=== PATIENT | male | born 1990 | race Caucasian/White ===

== ENCOUNTER 2024-12-12 06:46 | Inpatient (IN) ==
[2024-12-12] MEDS ORDERED: IOPAMIDOL 100 ML BOTTLE IV ONE (06:47)
[2024-12-12] MEDS: 0.9 % SODIUM CHLORIDE 1,000 ML IV ONE ×2 (07:18→08:39)
[2024-12-12] MEDS: ONDANSETRON 4 MG/2 ML VIAL IV ONE (07:19)
[2024-12-12] MEDS: KETOROLAC 15 MG/ML VIAL IV ONE (07:19)
[2024-12-12 07:34] LABS: Basophils # (Auto) 0.02 K/mcL (0.00-0.30); Basophils % (Auto) 0.1 % (0.0-2.0); Eosinophils # (Auto) 0.04 K/mcL (0.00-0.70); Eosinophils % (Auto) 0.3 % (0.0-7.0); Hematocrit 39.8 % (40.1-51.0); Hemoglobin 13.2 g/dL (13.7-17.5); Lymphocytes # (Auto) 1.60 K/mcL (1.50-4.80); Lymphocytes % (Auto) 11.9 % (15.5-49.0); Mean Corpuscular HGB Conc 33.2 g/dL (31.0-36.0); Monocytes # (Auto) 0.73 K/mcL (0.10-0.90); Monocytes % (Auto) 5.4 % (1.0-12.0); Neutrophils % (Auto) 82.2 % (38.0-78.0); Platelet Count 366 K/mcL (140-440); RBC 4.42 M/mcL (4.63-6.08); WBC 13.5 K/mcL (4.5-11.0)
[2024-12-12 07:47] LABS: ALT/SGPT 23 U/L (<40); AST/SGOT 17 U/L (<40); Albumin 4.2 gm/dL (3.2-5.2); Albumin/Globulin Ratio 1.8 (1.0-2.3); Alkaline Phosphatase 42 U/L (39-117); Anion Gap 15.0 (8.0-16.0); Bilirubin,Total 0.3 mg/dL (0.1-1.0); Blood Urea Nitrogen 14 mg/dL (6-20); Calcium 9.5 mg/dL (8.6-10.4); Carbon Dioxide 23 mmol/L (22-30); Chloride 99 mmol/L (96-108); Globulin 2.4 gm/dL (2.2-3.7); Glucose 139 mg/dL (70-105); Potassium 3.4 mmol/L (3.3-5.1); Sodium 137 mmol/L (133-145)
[2024-12-12] MEDS: fentaNYL 100 MCG/2 ML VIAL IV ONE (08:41)
[2024-12-12] MEDS: DICYCLOMINE 20 MG/2 ML VIAL IM ONE (09:36)
[2024-12-12] MEDS: PIPERACILLIN SODIUM/TAZOBACTAM 3.375 GM in DEXTROSE 5% IN WATER 50 ML IV SCH (10:03)
[2024-12-12] MEDS: 0.9 % SODIUM CHLORIDE 1,000 ML IV SCH (10:04)
[2024-12-12] MEDS: 0.9 % SODIUM CHLORIDE 10 ML SYRINGE IV SCH (12:32)
[2024-12-12] MEDS: PIPERACILLIN SODIUM/TAZOBACTAM 4.5 GM in DEXTROSE 5% IN WATER 100 ML IV SCH (15:17)
[2024-12-12 18:48] LABS: ALT/SGPT 18 U/L (<40); AST/SGOT 16 U/L (<40); Albumin 3.9 gm/dL (3.2-5.2); Albumin/Globulin Ratio 1.8 (1.0-2.3); Alkaline Phosphatase 40 U/L (39-117); Anion Gap 12.0 (8.0-16.0); Bilirubin,Direct 0.2 mg/dL (<0.3); Bilirubin,Total 0.5 mg/dL (0.1-1.0); Blood Urea Nitrogen 7 mg/dL (6-20); Calcium 8.8 mg/dL (8.6-10.4); Carbon Dioxide 23 mmol/L (22-30); Chloride 103 mmol/L (96-108); Globulin 2.2 gm/dL (2.2-3.7); Glucose 100 mg/dL (70-105); Phosphorous 3.5 mg/dL (2.5-4.5); Potassium 3.5 mmol/L (3.3-5.1); Sodium 138 mmol/L (133-145); Triglycerides 75 mg/dL (<150); Uric Acid 4.5 mg/dL (2.5-8.0)
[2024-12-13 06:26] LABS: Basophils # (Auto) 0.03 K/mcL (0.00-0.30); Basophils % (Auto) 0.3 % (0.0-2.0); Eosinophils # (Auto) 0.10 K/mcL (0.00-0.70); Eosinophils % (Auto) 0.9 % (0.0-7.0); Hematocrit 37.8 % (40.1-51.0); Hemoglobin 12.4 g/dL (13.7-17.5); Lymphocytes # (Auto) 1.92 K/mcL (1.50-4.80); Lymphocytes % (Auto) 17.7 % (15.5-49.0); Mean Corpuscular HGB Conc 32.8 g/dL (31.0-36.0); Monocytes # (Auto) 1.08 K/mcL (0.10-0.90); Monocytes % (Auto) 10.0 % (1.0-12.0); Neutrophils % (Auto) 70.9 % (38.0-78.0); Platelet Count 305 K/mcL (140-440); RBC 4.14 M/mcL (4.63-6.08); WBC 10.9 K/mcL (4.5-11.0)
[2024-12-13 06:44] LABS: ALT/SGPT 17 U/L (<40); AST/SGOT 13 U/L (<40); Albumin 3.6 gm/dL (3.2-5.2); Albumin/Globulin Ratio 1.6 (1.0-2.3); Alkaline Phosphatase 40 U/L (39-117); Anion Gap 9.0 (8.0-16.0); Bilirubin,Direct 0.2 mg/dL (<0.3); Bilirubin,Total 0.5 mg/dL (0.1-1.0); Blood Urea Nitrogen 6 mg/dL (6-20); Calcium 8.5 mg/dL (8.6-10.4); Carbon Dioxide 24 mmol/L (22-30); Chloride 105 mmol/L (96-108); Globulin 2.2 gm/dL (2.2-3.7); Glucose 86 mg/dL (70-105); Phosphorous 2.9 mg/dL (2.5-4.5); Potassium 3.6 mmol/L (3.3-5.1); Sodium 138 mmol/L (133-145); Triglycerides 99 mg/dL (<150); Uric Acid 3.7 mg/dL (2.5-8.0)
[2024-12-14 06:35] LABS: Basophils # (Auto) 0.04 K/mcL (0.00-0.30); Basophils % (Auto) 0.5 % (0.0-2.0); Eosinophils # (Auto) 0.31 K/mcL (0.00-0.70); Eosinophils % (Auto) 3.7 % (0.0-7.0); Hematocrit 36.5 % (40.1-51.0); Hemoglobin 11.8 g/dL (13.7-17.5); Lymphocytes # (Auto) 1.92 K/mcL (1.50-4.80); Lymphocytes % (Auto) 23.0 % (15.5-49.0); Mean Corpuscular HGB Conc 32.3 g/dL (31.0-36.0); Monocytes # (Auto) 0.90 K/mcL (0.10-0.90); Monocytes % (Auto) 10.8 % (1.0-12.0); Neutrophils % (Auto) 61.9 % (38.0-78.0); Platelet Count 282 K/mcL (140-440); RBC 3.95 M/mcL (4.63-6.08); WBC 8.3 K/mcL (4.5-11.0)
[2024-12-14 06:58] LABS: ALT/SGPT 18 U/L (<40); AST/SGOT 14 U/L (<40); Albumin 3.6 gm/dL (3.2-5.2); Albumin/Globulin Ratio 1.6 (1.0-2.3); Alkaline Phosphatase 40 U/L (39-117); Anion Gap 11.0 (8.0-16.0); Bilirubin,Direct 0.2 mg/dL (<0.3); Bilirubin,Total 0.5 mg/dL (0.1-1.0); Blood Urea Nitrogen 6 mg/dL (6-20); Calcium 8.7 mg/dL (8.6-10.4); Carbon Dioxide 23 mmol/L (22-30); Chloride 105 mmol/L (96-108); Globulin 2.2 gm/dL (2.2-3.7); Glucose 84 mg/dL (70-105); Phosphorous 2.8 mg/dL (2.5-4.5); Potassium 3.4 mmol/L (3.3-5.1); Sodium 139 mmol/L (133-145); Triglycerides 107 mg/dL (<150); Uric Acid 3.6 mg/dL (2.5-8.0)
[2024-12-14] MEDS ORDERED: ONDANSETRON 4 MG/2 ML VIAL ONE (09:59)
[2024-12-14] MEDS ORDERED: LIDOCAINE 2% PF 5 ML VIAL ONE (09:59)
[2024-12-14] MEDS ORDERED: fentaNYL 100 MCG/2 ML VIAL ONE ×2 (09:59→11:21)
[2024-12-14] MEDS ORDERED: MAGNESIUM SULFATE 2 GM/50 ML BAG IV ONE (09:59)
[2024-12-14] MEDS ORDERED: ROCURONIUM 10 MG/ML ML IV ONE (09:59)
[2024-12-14] MEDS ORDERED: PROPOFOL 200 MG/20 ML VIAL IV ONE (09:59)
[2024-12-14] MEDS ORDERED: DEXAMETHASONE 10 MG/ML VIAL ONE (09:59)
[2024-12-14] MEDS ORDERED: IPRATROPIUM/ALBUTEROL 3 ML AMPUL.NEB NEB PRN (11:09)
[2024-12-14] MEDS ORDERED: LACTATED RINGERS 250 ML IV PRN (11:09)
[2024-12-14] MEDS ORDERED: diphenhydrAMINE 50 MG/ML VIAL IV PRN (11:09)
[2024-12-14] MEDS ORDERED: ONDANSETRON 4 MG/2 ML VIAL IV PRN (11:09)
[2024-12-14] MEDS ORDERED: MEPERIDINE 25 MG/ML VIAL IV PRN (11:09)
[2024-12-14] MEDS ORDERED: NALOXONE HCL 0.4 MG/ML VIAL IV PRN (11:09)
[2024-12-14] MEDS ORDERED: SUGAMMADEX SODIUM 200 MG/2 ML VIAL IV ONE (11:20)
[2024-12-14] MEDS: LACTATED RINGERS 1,000 ML IV SCH (11:31)
[2024-12-14] MEDS: ACETAMINOPHEN 1,000 MG/100 ML BAG IV ONE (11:39)
[2024-12-14] MEDS: KETOROLAC 30 MG/ML VIAL IV PRN (11:51)
[2024-12-14] MEDS: METHOCARBAMOL 1,000 MG/10 ML VIAL IV PRN (11:56)
[2024-12-14] MEDS: ONDANSETRON 4 MG/2 ML VIAL IV PRN (11:56)
[2024-12-14] MEDS: fentaNYL 100 MCG/2 ML VIAL IV PRN (12:07)
[2024-12-15 06:34] LABS: Basophils # (Auto) 0.01 K/mcL (0.00-0.30); Basophils % (Auto) 0.1 % (0.0-2.0); Eosinophils # (Auto) 0.01 K/mcL (0.00-0.70); Eosinophils % (Auto) 0.1 % (0.0-7.0); Hematocrit 34.3 % (40.1-51.0); Hemoglobin 11.2 g/dL (13.7-17.5); Lymphocytes # (Auto) 1.70 K/mcL (1.50-4.80); Lymphocytes % (Auto) 16.7 % (15.5-49.0); Mean Corpuscular HGB Conc 32.7 g/dL (31.0-36.0); Monocytes # (Auto) 0.89 K/mcL (0.10-0.90); Monocytes % (Auto) 8.7 % (1.0-12.0); Neutrophils % (Auto) 74.2 % (38.0-78.0); Platelet Count 264 K/mcL (140-440); RBC 3.73 M/mcL (4.63-6.08); WBC 10.2 K/mcL (4.5-11.0)
[2024-12-15 07:24] LABS: ALT/SGPT 36 U/L (<40); AST/SGOT 24 U/L (<40); Albumin 3.4 gm/dL (3.2-5.2); Albumin/Globulin Ratio 1.5 (1.0-2.3); Alkaline Phosphatase 41 U/L (39-117); Anion Gap 9.0 (8.0-16.0); Bilirubin,Direct < 0.2 mg/dL (0-0.3); Bilirubin,Total 0.4 mg/dL (0.1-1.0); Blood Urea Nitrogen 5 mg/dL (6-20); Calcium 8.1 mg/dL (8.6-10.4); Carbon Dioxide 22 mmol/L (22-30); Chloride 107 mmol/L (96-108); Globulin 2.3 gm/dL (2.2-3.7); Glucose 86 mg/dL (70-105); Phosphorous 3.1 mg/dL (2.5-4.5); Potassium 3.9 mmol/L (3.3-5.1); Sodium 138 mmol/L (133-145); Triglycerides 107 mg/dL (<150); Uric Acid 3.3 mg/dL (2.5-8.0)
[2024-12-15 14:44] VITALS: TEMP 98.1; O2SAT 96
== END 2024-12-15 15:56 | disposition home or self-care (01) | DRG 419 ==
LOC: ED 06:46 → MEDSUR 06:46
PROVIDERS: ADMIT Family Medicine Adult Medicine; ATTEND Family Medicine Adult Medicine

== ENCOUNTER 2025-01-09 17:32 | Inpatient (IN) ==
[2025-01-09] MEDS ORDERED: IOPAMIDOL 100 ML BOTTLE IV ONE (17:33)
[2025-01-09] MEDS: SODIUM CHLORIDE IV ONE (18:07)
[2025-01-09 18:27] LABS: Basophils # (Auto) 0.01 K/mcL (0.00-0.30); Basophils % (Auto) 0 % (0.0-2.0); Eosinophils # (Auto) 0 K/mcL (0.00-0.70); Eosinophils % (Auto) 0 % (0.0-7.0); Hematocrit 41.1 % (40.1-51.0); Hemoglobin 13.5 g/dL (13.7-17.5); Lymphocytes # (Auto) 1.17 K/mcL (1.50-4.80); Lymphocytes % (Auto) 5.1 % (15.5-49.0); Mean Corpuscular HGB Conc 32.8 g/dL (31.0-36.0); Monocytes # (Auto) 1.66 K/mcL (0.10-0.90); Monocytes % (Auto) 7.2 % (1.0-12.0); Neutrophils % (Auto) 87.5 % (38.0-78.0); Platelet Count 303 K/mcL (140-440); RBC 4.49 M/mcL (4.63-6.08); WBC 23.0 K/mcL (4.5-11.0)
[2025-01-09] MEDS: cefTRIAXone 2 GM in DEXTROSE 5% IN WATER 50 ML IV ONE (18:35)
[2025-01-09 21:01] LABS: Phosphorous 3.5 mg/dL (2.5-4.5)
[2025-01-09] MEDS: CIPROFLOXACIN 400 MG/200 ML BAG IV SCH (21:04)
[2025-01-09] MEDS ORDERED: SENNOSIDES 1 TABLET PO PRN (22:12)
[2025-01-09] MEDS ORDERED: ACETAMINOPHEN 325 MG TABLET PO PRN (22:12)
[2025-01-09] MEDS ORDERED: ONDANSETRON 4 MG/2 ML VIAL IV PRN (22:12)
[2025-01-09] MEDS ORDERED: POLYETHYLENE GLYCOL 3350 17 GM PACKET PO PRN (22:12)
[2025-01-09] MEDS ORDERED: MAG HYDROX/AL HYDROX/SIMETH 30 ML ORAL.SUSP PO PRN (22:12)
[2025-01-09] MEDS ORDERED: IBUPROFEN 600 MG TABLET PO PRN (22:12)
[2025-01-09] MEDS: 0.9 % SODIUM CHLORIDE 10 ML SYRINGE IV SCH (22:46)
[2025-01-09] MEDS: MELATONIN 3 MG TABLET PO SCH (22:48)
[2025-01-09] MEDS: MELATONIN 3 MG TABLET PO ONE (22:49)
[2025-01-09] MEDS: CEFEPIME 2 GM VIAL IV SCH (22:49)
[2025-01-09] MEDS: LACTATED RINGERS 1,000 ML IV SCH (22:49)
[2025-01-09] MEDS: CEFEPIME 1 GM VIAL ONE (22:49)
[2025-01-10 06:15] LABS: Basophils # (Auto) 0.02 K/mcL (0.00-0.30); Basophils % (Auto) 0.1 % (0.0-2.0); Eosinophils # (Auto) 0.05 K/mcL (0.00-0.70); Eosinophils % (Auto) 0.4 % (0.0-7.0); Hematocrit 35.2 % (40.1-51.0); Hemoglobin 11.6 g/dL (13.7-17.5); Lymphocytes # (Auto) 2.09 K/mcL (1.50-4.80); Lymphocytes % (Auto) 15.2 % (15.5-49.0); Mean Corpuscular HGB Conc 33.0 g/dL (31.0-36.0); Monocytes # (Auto) 1.15 K/mcL (0.10-0.90); Monocytes % (Auto) 8.4 % (1.0-12.0); Neutrophils % (Auto) 75.8 % (38.0-78.0); Platelet Count 266 K/mcL (140-440); RBC 3.81 M/mcL (4.63-6.08); WBC 13.8 K/mcL (4.5-11.0)
[2025-01-10 07:06] LABS: Anion Gap 10.0 (8.0-16.0); Blood Urea Nitrogen 7 mg/dL (6-20); Calcium 8.7 mg/dL (8.6-10.4); Carbon Dioxide 24 mmol/L (22-30); Chloride 105 mmol/L (96-108); Glucose 83 mg/dL (70-105); Potassium 3.7 mmol/L (3.3-5.1); Sodium 139 mmol/L (133-145)
[2025-01-10] MEDS: ENOXAPARIN 40 MG/0.4 ML SYRINGE SQ SCH (08:28)
[2025-01-10] MEDS: LACTATED RINGERS 1,000 ML IV SCH (19:27)
[2025-01-11 06:29] LABS: Basophils # (Auto) 0.03 K/mcL (0.00-0.30); Basophils % (Auto) 0.5 % (0.0-2.0); Eosinophils # (Auto) 0.09 K/mcL (0.00-0.70); Eosinophils % (Auto) 1.4 % (0.0-7.0); Hematocrit 36.3 % (40.1-51.0); Hemoglobin 11.9 g/dL (13.7-17.5); Lymphocytes # (Auto) 1.65 K/mcL (1.50-4.80); Lymphocytes % (Auto) 25.0 % (15.5-49.0); Mean Corpuscular HGB Conc 32.8 g/dL (31.0-36.0); Monocytes # (Auto) 0.68 K/mcL (0.10-0.90); Monocytes % (Auto) 10.3 % (1.0-12.0); Neutrophils % (Auto) 62.5 % (38.0-78.0); Platelet Count 271 K/mcL (140-440); RBC 3.89 M/mcL (4.63-6.08); WBC 6.6 K/mcL (4.5-11.0)
[2025-01-11 06:44] LABS: Anion Gap 11.0 (8.0-16.0); Blood Urea Nitrogen 8 mg/dL (6-20); Calcium 8.8 mg/dL (8.6-10.4); Carbon Dioxide 23 mmol/L (22-30); Chloride 104 mmol/L (96-108); Glucose 79 mg/dL (70-105); Potassium 3.5 mmol/L (3.3-5.1); Sodium 138 mmol/L (133-145)
[2025-01-11 12:36] VITALS: O2SAT 96
[2025-01-11 16:32] VITALS: TEMP 98.6
[2025-01-11] MEDS ORDERED: AMOXICILLIN/POTASSIUM CLAV 875 MG TABLET PO SCH (17:30)
== END 2025-01-11 16:17 | disposition home or self-care (01) | DRG 690 ==
LOC: ED 17:32 → MEDSUR 22:07
PROVIDERS: ADMIT Student in an Organized Health Care Education/Training Program; ATTEND Student in an Organized Health Care Education/Training Program